=== PATIENT | female | born 1975 | race Two or more races ===

== ENCOUNTER 2023-06-17 08:00 | Inpatient (IN) | payer OTHER ==
[~2023-06-17] VITALS: Ht 149.9 cm; Wt 61.2 kg
[2023-06-17] MEDS ORDERED: ALER-CAP25 MG PO (09:29)
[2023-06-17 09:48] LABS: HEMATOCRIT 39.2 % (36.0-45.00); HEMOGLOBIN 13.6 g/dL (12.0-15.00); MEAN CORPUSCULAR HEMOGLOBIN 32.3 pg (27.00-32.0); MEAN CORPUSCULAR HGB CONC 34.7 g/dl (32.0-36.0); PLATELET COUNT 288 K/uL (150-450); RED BLOOD COUNT 4.21 M/uL (4.00-6.00); RED CELL DISTRIBUTION WIDTH 12.3 % (11.5-14.5)
[2023-06-17 10:12] LABS: INR 0.95; PARTIAL THROMBOPLASTIN TIME 30.3 SECONDS (22.0-34.0)
[2023-06-17 10:17] LABS: BILIRUBIN TOTAL 0.66 mg/dL (0.3-1.2); CALCIUM 9.8 mg/dL (8.5-10.1); CREATININE SERUM 0.94 mg/dL (0.55-1.02); GFR 63.83; GLOBULINA 3.5 G/DL (2.4-3.5); POTASSIUM 4.42 mEq/L (3.5-5.1); TOTAL PROTEIN 7.5 gm/dL (6.4-8.2)
[2023-06-17 10:38] LABS: PH,URINE 5.5 (5.0-8.0); URINE APPEARANCE Clear; URINE BILIRRUBIN Negative (NEGATIVE); URINE BLOOD Moderate; URINE COLOR Yellow; URINE GLUCOSE Negative (NEGATIVE); URINE LEUKOCYTE Negative; URINE NITRATE Negative; URINE PROTEIN Negative (NEGATIVE); URINE UROBILINOGEN 0.2 E.U./dl
[2023-06-17 10:39] LABS: URINE BACTERIA 377.9 uL (0.0-1933); URINE EPITHELIAL CELLS 7.4 uL (0.0-38.8); URINE RBC 49.5 uL (0.0-20.8); URINE WBC 4.1 uL (0.0-23.2)
[2023-06-24] MEDS ORDERED: CLINDAMYCIN PHOSPHATE 150 MG/ML (900mg) ONE (07:04)
[2023-06-24] MEDS ORDERED: GENTAMICIN SULFATE 40 MG/ML VIAL ONE (07:05)
[2023-06-24] MEDS ORDERED: POVIDONE-IODINE 118 ML BOTT TOP ONE ×2 (07:13→09:00)
[2023-06-24] MEDS ORDERED: HEMOSTATIC MATRIX 1 KIT KIT TOP ONE ×2 (07:54→10:00)
[2023-06-24] MEDS ORDERED: SURGIFLO APPLICATOR 1 EACH APPL TOP ONE ×2 (07:55→10:00)
[2023-06-24] MEDS ORDERED: CLINDAMYCIN PHOSPHATE 150 MG/ML (900mg) IV ONE (08:45)
[2023-06-24] MEDS ORDERED: GENTAMICIN SULFATE/PF 10 MG/ML VIAL IV ONE (09:00)
[2023-06-24] MEDS ORDERED: BUPIVACAINE HCL 250MG/50ML VIAL ONE (09:59)
[2023-06-24] MEDS ORDERED: BUPIVACAINE HCL 250MG/50ML VIAL IJ ONE (10:15)
[2023-06-24] MEDS ORDERED: MORPHINE SULFATE 4 MG/ML CARTRIDGE IV PRN (10:45)
[2023-06-24] MEDS ORDERED: RINGERS SOLUTION,LACTATED 1,000 ML IV SCH (10:45)
[2023-06-24] MEDS ORDERED: ONDANSETRON HCL 2 MG/ML VIAL IV PRN (10:45)
[2023-06-24] MEDS ORDERED: KETOROLAC TROMETHAMINE 30 MG VIAL IV SCH (13:00)
[2023-06-24] MEDS ORDERED: SIMETHICONE 125 MG CAPSULE PO SCH (13:00)
[2023-06-24] MEDS ORDERED: KETOROLAC TROMETHAMINE 30 MG VIAL ONE (13:25)
[2023-06-24 13:40] LABS: HEMATOCRIT 35.2 % (36.0-45.00); HEMOGLOBIN 12.4 g/dL (12.0-15.00); MEAN CELL VOLUME 92.3 fL (80.00-100.00); MEAN CORPUSCULAR HEMOGLOBIN 32.4 pg (27.00-32.0); MEAN CORPUSCULAR HGB CONC 35.1 g/dl (32.0-36.0); PLATELET COUNT 284 K/uL (150-450); RED BLOOD COUNT 3.82 M/uL (4.00-6.00); RED CELL DISTRIBUTION WIDTH 12.6 % (11.5-14.5)
[2023-06-24 14:07] LABS: CALCIUM 8.7 mg/dL (8.5-10.1); CREATININE SERUM 0.81 mg/dL (0.55-1.02); GFR 75.79; POTASSIUM 3.92 mEq/L (3.5-5.1)
[2023-06-24] MEDS ORDERED: CLINDAMYCIN PHOSPHATE 150 MG/ML (600mg) IV SCH (17:00)
[2023-06-24] MEDS ORDERED: FAMOTIDINE/PF 20 MG/2 ML VIAL IV SCH (21:00)
[2023-06-24] MEDS ORDERED: DOCUSATE SODIUM 100MG CAP PO SCH (21:00)
[2023-06-25 05:27] LABS: HEMATOCRIT 31.7 % (36.0-45.00); HEMOGLOBIN 11.2 g/dL (12.0-15.00); MEAN CELL VOLUME 93.2 fL (80.00-100.00); MEAN CORPUSCULAR HEMOGLOBIN 32.9 pg (27.00-32.0); MEAN CORPUSCULAR HGB CONC 35.3 g/dl (32.0-36.0); PLATELET COUNT 261 K/uL (150-450); RED CELL DISTRIBUTION WIDTH 12.6 % (11.5-14.5)
[2023-06-25 05:41] LABS: CREATININE SERUM 0.88 mg/dL (0.55-1.02); GFR 68.88; POTASSIUM 3.99 mEq/L (3.5-5.1)
[2023-06-25] MEDS ORDERED: ENOXAPARIN SODIUM 40 MG/0.4 ML SYRINGE SUBCUTANEO SCH (09:00)
== END 2023-06-25 15:05 | disposition home or self-care (01) | DRG 743 ==
LOC: O/R 06-24 05:30 → OB/GYN 06-24 05:30 → SURG 06-24 07:00 → OB/GYN 06-24 11:16
PROVIDERS: ADMIT Obstetrics & Gynecology; ATTEND Obstetrics & Gynecology
PROC: 0UT74ZZ Resection of Bilateral Fallopian Tubes, Percutaneous Endoscopic Approach (ICD-10-PCS; 2023-06-24)
PROC: 0UT24ZZ Resection of Bilateral Ovaries, Percutaneous Endoscopic Approach (ICD-10-PCS; 2023-06-24)
PROC: 0USG4ZZ Reposition Vagina, Percutaneous Endoscopic Approach (ICD-10-PCS; 2023-06-24)
PROC: 0UT94ZZ Resection of Uterus, Percutaneous Endoscopic Approach (ICD-10-PCS; principal; 2023-06-24 07:00)
DX: D25.2 Subserosal leiomyoma of uterus (principal); D25.0 Submucous leiomyoma of uterus; N80.03 Adenomyosis of the uterus; N72 Inflammatory disease of cervix uteri; N83.01 Follicular cyst of right ovary; Z20.822 Contact with and (suspected) exposure to COVID-19